=== PATIENT | female | born 1985 | race Two or more races ===

== ENCOUNTER 2022-10-03 01:19 | Emergency (ER) | payer SELFPAY ==
[~2022-10-03] VITALS: Ht 170.2 cm; Wt 52.6 kg
--- NOTE | 2022-10-03 01:35 | NUR ---
[id number] from [facility], had some bottle of wine, took unknown amount of fycompa, denies SI. nausea present.
--- NOTE | 2022-10-03 02:00 | NUR ---
UNABLE TO PROVIDE URINE SAMPLE AT THE MOMENT.
--- NOTE | 2022-10-03 02:05 | NUR ---
SALINE LOCK AT R AC G20. BLOOD DRAWN AND GIVEN TO PHLEB.
--- NOTE | 2022-10-03 02:11 | NUR ---
EKG DONE BY EMT.
[2022-10-03 02:14] LABS: BASOPHILS % (AUTO) 0.9 % (0.0-2.0); EOSINOPHILS % (AUTO) 2.5 % (0.0-6.0); HEMATOCRIT 40 % (33-45); HEMOGLOBIN 13.2 g/dL (11.5-14.8); LYMPHOCYTES # (AUTO) 1.8 K/uL (0.8-4.8); LYMPHOCYTES % (AUTO) 33.5 % (20.0-44.0); MEAN CORPUSCULAR HGB CONC 33 g/dl (31.0-36.0); MEAN CORPUSCULAR VOLUME 99 fL (82-100); MONOCYTES # (AUTO) 0.3 K/uL (0.1-1.30); MONOCYTES % (AUTO) 5.4 % (2.0-12.0); NEUTROPHILS # (AUTO) 3.2 K/uL (1.8-8.9); NEUTROPHILS % (AUTO) 57.7 % (43.0-81.0); PLATELET COUNT (AUTO) 251 K/uL (150-450); RED BLOOD CELL COUNT(AUTO) 4.03 MIL/uL (4.0-5.2); WHITE BLOOD COUNT (AUTO) 5.5 K/uL (4.3-11.0)
[2022-10-03] MEDS ORDERED: ONDANSETRON HCL/PF 4 MG/2 ML VIAL ONE (02:15)
[2022-10-03 02:28] LABS: CALCIUM, SERUM 8.7 mg/dL (8.5-10.1); CREATININE 0.9 mg/dL (0.6-1.3); POTASSIUM 3.1 mmol/L (3.5-5.1)
[2022-10-03] MEDS ORDERED: ONDANSETRON HCL/PF - ER 4 MG/2 ML VIAL IV ONE (02:30)
[2022-10-03] MEDS ORDERED: IV NS 0.9% 1,000 ML IV ONE (02:30)
--- NOTE | 2022-10-03 02:37 | NUR ---
'S PHONE NO: [phone]. PROVIDED BY [facility]
[2022-10-03 02:43] LABS: ALBUMIN 4.1 g/dL (3.4-5.0)
[2022-10-03 03:01] LABS: BILIRUBIN,DIRECT 0.1 mg/dL (0.0-0.2); BILIRUBIN,TOTAL 0.2 mg/dL (0.2-1.0); TOTAL PROTEIN, SERUM 8.1 g/dL (6.4-8.2)
--- NOTE | 2022-10-03 07:00 | NUR ---
Dr. Kuo at Bedside for eval.
--- NOTE | 2022-10-03 07:10 | NUR ---
IV removed. Catheter intact and site benign. Pressure and 4x4 applied to site. No bleeding noted.
--- NOTE | 2022-10-03 07:13 | NUR ---
Patient discharged to home in stable condition. Written and verbal after care instructions given to pt and family member. Patient and family member verbalizes understanding of instruction.
[2022-10-03 07:14] VITALS: BP 126/65
== END 2022-10-03 07:15 | disposition home or self-care (01) ==
LOC: ER 01:21
DX: R11.11 Vomiting without nausea (principal); T50.991A Poisoning by other drugs, medicaments and biological substances, accidental (unintentional), initial encounter; F10.129 Alcohol abuse with intoxication, unspecified; Y92.89 Other specified places as the place of occurrence of the external cause; Y90.5 Blood alcohol level of 100-119 mg/100 ml
CPT/HCPCS: 99284; 96374; 96361; 93005; 85025; 80048; 80076; 36415; 80143; 80320; J2405; J7030; G0480